=== PATIENT | male | born 2000 | race Caucasian/White ===

== ENCOUNTER 2018-01-09 14:12 | Emergency (ER) | payer OTHER ==
[~2018-01-09] VITALS: Ht 188 cm; Wt 59.0 kg
[~2018-01-09 14:12] MED LIST: BACTRIM DS TAB1 EACH PO; KEFLEX500 M1 PO; NAPROSYN500 M1 PO; TRAMADOL HCL50 M1 PO
[2018-01-09 14:24] VITALS: BP 109/70
--- NOTE | 2018-01-09 16:13 | ED ANIMAL BITE/WOUND CHECK ---
History of Present Illness General Chief Complaint: Skin Rash/ Abcess Stated Complaint: ABSCESS ON ABDOMEN Source: patient Exam Limitations: no limitations Vital Signs & Intake/Output Vital Signs & Intake/Output ED Intake and Output 01/10 0000 01/09 1200 Intake Total Output Total Balance Patient 130 lb Weight Weight Estimated Measurement Method Allergies Coded Allergies: NO KNOWN ALLERGIES (12/20/12) Reconcile Medications Cephalexin (Keflex) 500 MG CAPSULE 1 CAP PO Q6 cellulitis Naproxen (Naprosyn) 500 MG TABLET 1 TAB PO BID pain Sulfamethoxazole/Trimethoprim (Bactrim Ds Tablet) 800 MG-160 MG TABLET 1 TAB PO BID cellulitis Tramadol HCl 50 MG TABLET 1 TAB PO Q6P PRN pain Triage Note: PT TO ED FOR CONTINUED ABSCESS ON ABD. PT SEEN IN ED ON 01/07 FOR SAME. SENT HOME ON ABX. PT STATES HE SQUEEZED IT AND PUS CAME OUT. Triage Nurses Notes Reviewed? yes Onset: Abrupt Duration: day(s): (3), better, continues in ED Timing: single episode today Injury Environment: home Is Injury an Animal Bite? No No Modifying Factors: none HPI: 17-year-old male with no past medical history presents for reevaluation of abdominal wall abscess. Patient was seen here 2 days ago and was started on antibiotics for an abdominal abscess. That time there is nothing to drain. Patient reports that he has been taking his antibiotics as directed he states that he pushed out a large amount of pus today. He denies any fevers. He reports the redness and swelling has improved but is still persistent. He is not a diabetic denies abdominal pain otherwise no nausea vomiting. Past History Travel History Traveled to [place] past 21 day No Medical History Any Pertinent Medical History? 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 No Review of Systems Review of Systems Constitutional: Reports: no symptoms. EENTM: Reports: no symptoms. Respiratory: Reports: no symptoms. Cardiovascular: Reports: no symptoms. GI: Reports: no symptoms. Genitourinary: Reports: no symptoms. Musculoskeletal: Reports: no symptoms. Skin: Reports: see HPI (ABSCESS). Neurological/Psychological: Reports: no symptoms. Hematologic/Endocrine: Reports: no symptoms. Immunologic/Allergic: Reports: no symptoms. All Other Systems: Reviewed and Negative Physical Exam Physical Exam General Appearance: well developed/nourished, no apparent distress, alert, awake Head: atraumatic, normal appearance Eyes: Bilateral: normal appearance, EOMI. Ears, Nose, Throat: hearing grossly normal Neck: normal inspection, supple, full range of motion Respiratory: no respiratory distress Cardiovascular: regular rate/rhythm, normal peripheral pulses Gastrointestinal: soft, non-tender Back: normal inspection, normal range of motion Extremities: normal range of motion Neurologic/Psych: no motor/sensory deficits, awake, alert, oriented x 3, normal gait Skin: intact, normal color, warm/dry, ABDOMINAL WALL ABSCESS: THERE IS AN AREA OF FOCAL FLUCTUANCE LOCATED IN THE LOWER ABDOMEN. tHERE IS SOME SURROUNDING INDURATION. eRYTHEMA HAS SIGNIFICANTLY RECEDED COMPARED TO PREVIOUS SILVIO. nO LYMPHATIC STREAKING Progress Differential Diagnosis: abscess, cellulitis Plan of Care: Patient is here for evaluation of abdominal wall abscess. It appears to be improving since it first started. There is an area of focal fluctuance present today. There is with Betadine 1% lidocaine without epi was used for local pinkish oh. 11 blade used to open the area of fluctuance small amount of brown discharge expressed abscess pocket deloculated. Advised patient to continue antibiotics for the full course apply warm compresses discussed return precautions return in 2 or 3 days for wound check discussed returning sooner if any concerns patient agrees the plan Departure Departure Disposition: HOME OR SELF CARE Condition: Stable Clinical Impression Primary Impression: Abscess Referrals: Patient Has No Primary Care Dr (PCP/Family) Additional Instructions: Finish antibiotics for the full course. Ibuprofen for pain. Apply warm compresses for 15-20 minutes every few hours. Change dressing once daily. Make a follow-up in 2 or 3 days for another recheck here with your primary care doctor return sooner with any concerns. Departure Forms: Customer Survey General Discharge Information Procedures Incision and Drainage Site: ABDOMINAL WALL Blade Size: 11 I & D Procedure: Yes: betadine prep, sterile drapes applied, sterile dressing applied.
== END 2018-01-09 16:17 ==
LOC: ERH 14:12
DX: L02.211 Cutaneous abscess of abdominal wall (principal)
CPT/HCPCS: J2001